=== PATIENT | male | born 1940 | race Caucasian/White ===

== ENCOUNTER 2019-07-01 10:07 | Emergency (ER) | payer OTHER, SELFPAY ==
[2019-07-01 10:30] VITALS: BP 196/102; PULSE 66; RESP 18; TEMP 36.7; O2SAT 100; BMI 31.8
--- NOTE | 2019-07-01 11:08 | ED.GENADULT ---
HPI - General Adult <Chastity Serrano PA-C - Last Filed: 07/01/19 19:08> General Chief complaint: Hypertension Stated complaint: high blood pressure today Time Seen by Provider: 07/01/19 10:14 Source: patient Mode of arrival: Ambulatory Limitations: no limitations History of Present Illness HPI narrative: This 79-year-old gentleman comes to ED due to noticing elevated blood pressure on his home monitoring. He states he always checks his blood pressure twice daily when relaxed. He states it averages about 135/80 at home, however over the last week or so he has noted more elevated diastolic readings as high as the 95-105 range. He states that he has had a bit of a cold that is largely resolved. He states other than that, he is feeling well, doing normal activities, normal p.o. intake. He denies any medication changes, new supplements, caffeine etc. He denies any chest pain or dyspnea. He denies any nausea. He denies any headache or vision change. He states that he came in due to concern over readings on the monitor, not due to feeling ill at all. He has some chronic lower extremity swelling, worse on the left, which is at baseline. He denies any pain in the extremities. He denies any symptoms other than a sore toe recently from gout, and chronic intermittent left shoulder soreness from arthritis on systems review, and has no shoulder pain currently. He states that he has a history of some mild renal insufficiency, notes that he had echocardiogram and stress test done without concerning findings in the last couple of years Related Data Home Medications Medication Instructions Recorded Confirmed albuterol sulfate 90 mcg/actuation 2 puff INHALATION Q4H PRN 04/25/18 07/01/19 breath activated powder inhaler amlodipine 5 mg tablet 5 mg PO DAILY 04/25/18 07/01/19 celecoxib 200 mg capsule 200 mg PO QPM 04/25/18 07/01/19 levothyroxine 75 mcg PO DAILY 07/01/19 07/01/19 Previous Rx's Medication Instructions Recorded losartan 100 mg PO DAILY #30 tab 07/01/19 potassium chloride 10 meq PO DAILY #30 cap 07/01/19 Allergies Allergy/AdvReac Type Severity Reaction Status Date / Time No Known Drug Allergies Allergy Unverified 04/25/18 09:10 Review of Systems <Chastity Serrano PA-C - Last Filed: 07/01/19 19:08> Review of Systems ROS Unobtainable: All systems reviewed & are unremarkable except as noted in HPI and below PFSH <Chastity Serrano PA-C - Last Filed: 07/01/19 19:08> Medical History (Updated 07/01/19 @ 17:35 by Chastity Serrano PA-C) Gout (Chronic) Heart murmur (Chronic) HTN (hypertension) (Chronic) Hypothyroidism (Chronic) TERRA (obstructive sleep apnea) (Chronic) Osteoarthritis involving multiple joints on both sides of body (Chronic) Renal insufficiency (Chronic) Surgical History (Updated 07/01/19 @ 11:43 by Chastity Serrano PA-C) H/O shoulder replacement (Resolved) Hx of cholecystectomy (Resolved) Status post cholecystectomy (Chronic) Status post total hip replacement, bilateral (Resolved) Status post uvulopalatopharyngoplasty (Resolved) Social History Smoking Status: Former smoker Social History Smoking Status: Former smoker Comment: quit tob 50y ago Exam <Chastity Serrano PA-C - Last Filed: 07/01/19 19:08> Narrative Exam Narrative: GENERAL APPEARANCE: Patient sitting comfortably, in no distress. NECK/THYROID: Neck supple, no JVD. LUNGS: Clear to auscultation bilaterally. HEART: Regular rate and rhythm with I/ systolic ejection murmur, normal S1, S2, no S3 or S4. ABDOMEN: Soft, NT, ND, + BS x 4 quadrants EXTREMITIES: No cyanosis mild bilateral symmetric pitting edema. No calf tenderness NEUROLOGIC: Alert and oriented, normal speech, and coordination. Initial Vital Signs Initial Vital Signs: Vital Signs Temperature 98.1 F 07/01/19 10:30 Pulse Rate 66 07/01/19 10:30 Respiratory Rate 18 07/01/19 10:30 Blood Pressure 196/102 H 07/01/19 10:30 Pulse Oximetry 100 07/01/19 10:30 <Tam Park DO - Last Filed: 07/02/19 06:56> Initial Vital Signs Initial Vital Signs: Vital Signs Temperature 98.1 F 07/01/19 10:30 Pulse Rate 66 07/01/19 10:30 Respiratory Rate 18 07/01/19 10:30 Blood Pressure 196/102 H 07/01/19 10:30 Pulse Oximetry 100 07/01/19 10:30 Course <Chastity Serrano PA-C - Last Filed: 07/01/19 19:08> Course Additional Information: We had initially planned to admit patient for potassium replacement and monitoring, however spoke with hospitalist Dr. Melgar who advised since patient is feeling well, no acute EKG changes and can tolerate oral medications, advised outpatient treatment unless patient's potassium is not improving here. K rider 40 mEq given, repeat potassium improved to 3.1, EKG stable. Patient remains feeling well. Will discontinue HCTZ. Given a prescription for Cozaar alone along with 10 mEq potassium and advised that this should be rechecked in the next couple of days to determine whether he needs to continue off of his diuretic. Patient agrees to phone his PCP office 1st thing in the morning regarding this. He agrees to return if any acute changes. I spoke with Dr. Berumen vocational education teacher for patient's PCP who is aware of findings and able to ensure patient gets timely follow up and labwork Orders Ordered: Discontinued Medications Potassium Chloride 40 meq/ (Sodium Chloride) 520 mls @ 130 mls/hr IV NOW ONE Stop: 07/01/19 15:49 Last Infusion: 07/01/19 16:36 Dose: 0 mls/hr Documented by: EVANGELINA Cosigned by: RAINER Admin: 07/01/19 12:23 Dose: 130 mls/hr Documented by: RAINER Cosigned by: BTONEErika Vital Signs Vital signs: Vital Signs - 8 hr 07/01/19 11:13 07/01/19 14:56 07/01/19 17:31 Pulse Rate 69 52 L 57 L Respiratory Rate 20 17 15 Blood Pressure [Right Arm] 168/91 H 140/76 139/81 Pulse Oximetry 99 99 99 <Tam Park DO - Last Filed: 07/02/19 06:56> Orders Ordered: Discontinued Medications Potassium Chloride 40 meq/ (Sodium Chloride) 520 mls @ 130 mls/hr IV NOW ONE Stop: 07/01/19 15:49 Last Infusion: 07/01/19 16:36 Dose: 0 mls/hr Documented by: EVANGELINA Cosigned by: RAINER Admin: 07/01/19 12:23 Dose: 130 mls/hr Documented by: RAINER Cosigned by: INEZ Vital Signs Vital signs: Vital Signs - 8 hr 07/01/19 11:13 07/01/19 14:56 07/01/19 17:31 Pulse Rate 69 52 L 57 L Respiratory Rate 20 17 15 Blood Pressure [Right Arm] 168/91 H 140/76 139/81 Pulse Oximetry 99 99 99 Medical Decision Making <Chastity Serrano PA-C - Last Filed: 07/01/19 19:08> Lab Data Lab results reviewed: Yes I reviewed the patient's lab results. Result diagrams: 07/01/19 11:00 07/01/19 16:58 Labs: Lab Results 07/01/19 07/01/19 07/01/19 Range/Units 11:00 11:00 11:00 WBC 8.9 (4.5-11.0) X10^3/uL RBC 4.88 (4.5-5.9) X10^6/uL Hgb 15.3 (13.5-17.5) g/dL Hct 44.3 (41-53) % MCV 90.8 (80-100) fL MCH 31.4 (26-34) PG MCHC 34.6 (30-36) % RDW 13.3 (11.6-14.8) % Plt Count 133 L (150-400) X10^3/uL Neut % (Auto) 67.4 (50-75) % Lymph % (Auto) 22.7 L (25-40) % [place] % (Auto) 7.5 (3-14) % Eos % (Auto) 2.0 (2-4) % Baso % (Auto) 0.4 (0-2) % Neut # (Auto) 6000 (2349-6560) /uL Lymph # (Auto) 2000 (3573-0668) /uL [place] # (Auto) 700 (0-900) /uL Eos # (Auto) 200 (0-450) /uL Baso # (Auto) 0 (0-100) /uL Sodium 139 (137-145) mmol/L Potassium 2.5 L* (3.4-5.1) mmol/L Chloride 99 (98-107) mmol/L Carbon Dioxide 27 (22-32) mmol/L BUN 21 H (9-20) mg/dL Creatinine 1.20 (0.66-1.25) mg/dL Estimated GFR 58.3 L (>60) mL/min BUN/Creatinine Ratio 17.5 (6-22) Glucose 94 (80-110) mg/dL Calcium 9.8 (8.4-10.2) mg/dL Magnesium 1.7 (1.6-2.3) mg/dL 07/01/19 Range/Units 16:58 WBC (4.5-11.0) X10^3/uL RBC (4.5-5.9) X10^6/uL Hgb (13.5-17.5) g/dL Hct (41-53) % MCV (80-100) fL MCH (26-34) PG MCHC (30-36) % RDW (11.6-14.8) % Plt Count (150-400) X10^3/uL Neut % (Auto) (50-75) % Lymph % (Auto) (25-40) % [place] % (Auto) (3-14) % Eos % (Auto) (2-4) % Baso % (Auto) (0-2) % Neut # (Auto) (6089-1476) /uL Lymph # (Auto) (9344-9324) /uL [place] # (Auto) (0-900) /uL Eos # (Auto) (0-450) /uL Baso # (Auto) (0-100) /uL Sodium (137-145) mmol/L Potassium 3.1 L (3.4-5.1) mmol/L Chloride (98-107) mmol/L Carbon Dioxide (22-32) mmol/L BUN (9-20) mg/dL Creatinine (0.66-1.25) mg/dL Estimated GFR (>60) mL/min BUN/Creatinine Ratio (6-22) Glucose (80-110) mg/dL Calcium (8.4-10.2) mg/dL Magnesium (1.6-2.3) mg/dL Urine Dip Bedside Urine Glucose Negative Bedside Urine Bilirubin - Negative Bedside Urine Ketone - Negative Urine Specific [place] 1.010 Bedside Urine Occult Blood - Negative Bedside Urine pH 6.0 Bedside Urine Protein - Negative Bedside Urine Urobilinogen - Negative Bedside Urine Nitrite - Negative Bedside Urine Leukocytes - Negative Esterase Point of care testing: Urine Dip Bedside Urine Glucose Negative Bedside Urine Bilirubin - Negative Bedside Urine Ketone - Negative Urine Specific [place] 1.010 Bedside Urine Occult Blood - Negative Bedside Urine pH 6.0 Bedside Urine Protein - Negative Bedside Urine Urobilinogen - Negative Bedside Urine Nitrite - Negative Bedside Urine Leukocytes - Negative Esterase ECG Data Attestation: I personally reviewed and interpreted this ECG as follows: (Normal sinus rhythm, rate 75, nonspecific lateral lead changes, Q-waves, unchanged from previous. EKG 2. Sinus bradycardia, rate 52, no acute change ) <Tam Park DO - Last Filed: 07/02/19 06:56> Lab Data Labs: Lab Results 07/01/19 07/01/19 07/01/19 Range/Units 11:00 11:00 11:00 WBC 8.9 (4.5-11.0) X10^3/uL RBC 4.88 (4.5-5.9) X10^6/uL Hgb 15.3 (13.5-17.5) g/dL Hct 44.3 (41-53) % MCV 90.8 (80-100) fL MCH 31.4 (26-34) PG MCHC 34.6 (30-36) % RDW 13.3 (11.6-14.8) % Plt Count 133 L (150-400) X10^3/uL Neut % (Auto) 67.4 (50-75) % Lymph % (Auto) 22.7 L (25-40) % [place] % (Auto) 7.5 (3-14) % Eos % (Auto) 2.0 (2-4) % Baso % (Auto) 0.4 (0-2) % Neut # (Auto) 6000 (9269-7794) /uL Lymph # (Auto) 2000 (2617-0848) /uL [place] # (Auto) 700 (0-900) /uL Eos # (Auto) 200 (0-450) /uL Baso # (Auto) 0 (0-100) /uL Sodium 139 (137-145) mmol/L Potassium 2.5 L* (3.4-5.1) mmol/L Chloride 99 (98-107) mmol/L Carbon Dioxide 27 (22-32) mmol/L BUN 21 H (9-20) mg/dL Creatinine 1.20 (0.66-1.25) mg/dL Estimated GFR 58.3 L (>60) mL/min BUN/Creatinine Ratio 17.5 (6-22) Glucose 94 (80-110) mg/dL Calcium 9.8 (8.4-10.2) mg/dL Magnesium 1.7 (1.6-2.3) mg/dL 07/01/19 Range/Units 16:58 WBC (4.5-11.0) X10^3/uL RBC (4.5-5.9) X10^6/uL Hgb (13.5-17.5) g/dL Hct (41-53) % MCV (80-100) fL MCH (26-34) PG MCHC (30-36) % RDW (11.6-14.8) % Plt Count (150-400) X10^3/uL Neut % (Auto) (50-75) % Lymph % (Auto) (25-40) % [place] % (Auto) (3-14) % Eos % (Auto) (2-4) % Baso % (Auto) (0-2) % Neut # (Auto) (4615-1794) /uL Lymph # (Auto) (0996-9819) /uL [place] # (Auto) (0-900) /uL Eos # (Auto) (0-450) /uL Baso # (Auto) (0-100) /uL Sodium (137-145) mmol/L Potassium 3.1 L (3.4-5.1) mmol/L Chloride (98-107) mmol/L Carbon Dioxide (22-32) mmol/L BUN (9-20) mg/dL Creatinine (0.66-1.25) mg/dL Estimated GFR (>60) mL/min BUN/Creatinine Ratio (6-22) Glucose (80-110) mg/dL Calcium (8.4-10.2) mg/dL Magnesium (1.6-2.3) mg/dL Urine Dip Bedside Urine Glucose Negative Bedside Urine Bilirubin - Negative Bedside Urine Ketone - Negative Urine Specific [place] 1.010 Bedside Urine Occult Blood - Negative Bedside Urine pH 6.0 Bedside Urine Protein - Negative Bedside Urine Urobilinogen - Negative Bedside Urine Nitrite - Negative Bedside Urine Leukocytes - Negative Esterase Point of care testing: Urine Dip Bedside Urine Glucose Negative Bedside Urine Bilirubin - Negative Bedside Urine Ketone - Negative Urine Specific [place] 1.010 Bedside Urine Occult Blood - Negative Bedside Urine pH 6.0 Bedside Urine Protein - Negative Bedside Urine Urobilinogen - Negative Bedside Urine Nitrite - Negative Bedside Urine Leukocytes - Negative Esterase Discharge Plan Departure Patient Disposition: Home Clinical Impression: Hypokalemia Discharge Date/Time: 07/01/19 18:06 Instructions: Potassium Activity Restrictions/Additional Instructions: We noted coincidentally that your potassium was quite low today, however it has improved well with the IV potassium that we gave you. Since you have not had changes in your EKG and you have been feeling well, you can return home this evening. Your potassium may have become low due to being on a diuretic, so I have prescribed losartan alone without your water pill (hydrochlorothiazide). Please start taking that tomorrow along with the prescription potassium. As we talked about, potassium has a very narrow normal range, so you may not need to stay on the prescription potassium long-term after you stop the water pill. Losartan actually helps your body conserve potassium. Please call your primary care provider's office 1st thing in the morning and let them know we have advised you to follow up tomorrow or Friday for repeat potassium and to determine whether to make changes in your blood pressure medicine. If you are feeling poorly in the interim or have new symptoms such as chest pain or palpitations, you should return to the closest emergency department immediately. Prescriptions: New losartan 100 mg tablet 100 mg PO DAILY Qty: 30 RF: 0 potassium chloride 10 mEq capsule, extended release 10 meq PO DAILY Qty: 30 RF: 0 Discontinued losartan-hydrochlorothiazide 100-25 mg tablet 1 tab PO DAILY RF: 0 No Action albuterol sulfate 90 mcg/actuation aerosol powdr breath activated 2 puff INHALATION Q4H PRN (Reason: Shortness Of Breath) RF: 0 amlodipine 5 mg tablet 5 mg PO DAILY RF: 0 celecoxib 200 mg capsule 200 mg PO QPM RF: 0 levothyroxine 75 mcg tablet 75 mcg PO DAILY RF: 0 Referrals: Zhanna Vergara, [Primary Care Provider] -
[2019-07-01 11:13] VITALS: BP 168/91; PULSE 69; RESP 20; O2SAT 99
[2019-07-01 11:31] LABS: Add Manual Diff / Slide Review NO; Basophils Absolute Auto 0 /uL (0-100); Basophils Percent Auto 0.4 % (0-2); Eosinophils Absolute Auto 200 /uL (0-450); Hematocrit 44.3 % (41-53); Hemoglobin 15.3 g/dL (13.5-17.5); Lymphocytes Absolute Auto 2000 /uL (1100-4500); Lymphocytes Percent Auto 22.7 % (25-40); Mean Corpuscular HGB Conc 34.6 % (30-36); Mean Corpuscular Hemoglobin 31.4 PG (26-34); Mean Corpuscular Volume 90.8 fL (80-100); Monocytes Absolute Auto 700 /uL (0-900); Monocytes Percent Auto 7.5 % (3-14); Neutrophils Absolute Auto 6000 /uL (1500-7000); Neutrophils Percent Auto 67.4 % (50-75); Platelet Count 133 X10^3/uL (150-400); Red Blood Cell Count 4.88 X10^6/uL (4.5-5.9); Red Cell Distribution Width 13.3 % (11.6-14.8); White Blood Cell Count 8.9 X10^3/uL (4.5-11.0)
[2019-07-01 11:36] LABS: BUN Creatinine Ratio 17.5 (6-22); Blood Urea Nitrogen 21 mg/dL (9-20); Calcium 9.8 mg/dL (8.4-10.2); Carbon Dioxide 27 mmol/L (22-32); Chloride 99 mmol/L (98-107); Estimated Glomerular Filt Rate 58.3 mL/min (>60); Glucose 94 mg/dL (80-110); HEMOLYSIS < 15 (0-50); Sodium 139 mmol/L (137-145)
[2019-07-01 11:46] LABS: Potassium 2.5 mmol/L (3.4-5.1)
[2019-07-01 12:04] LABS: Magnesium 1.7 mg/dL (1.6-2.3)
[2019-07-01] MEDS: POTASSIUM CHLORIDE 40 MEQ in SODIUM CHLORIDE 0.9% 500 ML 130 ML IV (12:23)
--- NOTE | 2019-07-01 12:43 | PC.NURSE ---
pt c/o increasing high blood pressure. pt denies chest pain. denies sob.
[2019-07-01 14:56] VITALS: BP 140/76; PULSE 52; RESP 17; O2SAT 99
[2019-07-01 17:16] LABS: HEMOLYSIS < 15 (0-50); Potassium 3.1 mmol/L (3.4-5.1)
[2019-07-01 17:31] VITALS: BP 139/81; PULSE 57; RESP 15; O2SAT 99
== END 2019-07-01 18:06 | disposition home or self-care (01) ==
PROVIDERS: Emergency Provider Internal Medicine; PCP Family Medicine
DX: E87.5 Hyperkalemia (principal); R00.1 Bradycardia, unspecified
CPT/HCPCS: 80048; 81003; 83735; 84132; 85025; 93005; 96365; 96366; 99283; 99284; J3480

== ENCOUNTER 2020-03-19 17:02 | Emergency (ER) | payer OTHER, SELFPAY ==
[2020-03-19 17:07] VITALS: BP 201/111; PULSE 90; RESP 18; TEMP 37.7; O2SAT 99
--- NOTE | 2020-03-19 17:11 | DI.RAD.S_ITS ---
PROCEDURE: XR CHEST 1V INDICATIONS: chest pain TECHNIQUE: One view of the chest was acquired. COMPARISON: [facility], CR, XR CHEST 1 VIEW, 01/09/2018, 20:45. FINDINGS: Surgical changes and devices: Status post right shoulder arthroplasty. Lungs and pleura: Stable appearance of bilateral upper lung scarring. Lungs are otherwise clear. No pleural effusions or pneumothorax. Mediastinum: Mediastinal contours appear normal. Heart size is normal. Bones and chest wall: No suspicious bony lesions. Overlying soft tissues appear unremarkable. IMPRESSION: Chest without acute cardiopulmonary abnormalities. Dictated by: Reji Maldonado M.D. on 03/19/2020 at 18:11 Approved by: Reji Maldonado M.D. on 03/19/2020 at 18:12
--- NOTE | 2020-03-19 17:13 | ED_ITS ---
HPI - Chest Pain General Chief Complaint: Chest Pain Stated Complaint: chest pains, intermitten Time Seen by Provider: 03/19/20 17:05 Source: patient Mode of arrival: Ambulatory Limitations: no limitations History of Present Illness HPI narrative: Patient is a 79-year-old male with history of hypertension presenting with left-sided chest pain. He says he has been having discomfort off and on for a a few days now but today it has progressively gotten more frequent today. He feels numbness tingling sensations on left side of his chest it lasts only briefly seconds even however today it was more frequent every 3-4 minutes. He denies any radiation of pain any shortness of breath. He says it happens at rest and with exertion. He currently is not experiencing symptoms. He has never experienced anything like this in the past. He denies any provocation or palliation. MD complaint: chest pain Duration: intermittent Onset: during rest and during exertion Pain location: left chest Severity: mild Related Data Home Medications Medication Instructions Recorded Confirmed albuterol sulfate 90 mcg/actuation 2 puff INHALATION Q4H PRN 04/25/18 07/01/19 breath activated powder inhaler amlodipine 5 mg tablet 5 mg PO DAILY 04/25/18 07/01/19 celecoxib 200 mg capsule 200 mg PO QPM 04/25/18 07/01/19 levothyroxine 75 mcg PO DAILY 07/01/19 07/01/19 Previous Rx's Medication Instructions Recorded losartan 100 mg PO DAILY #30 tab 07/01/19 potassium chloride 10 meq PO DAILY #30 cap 07/01/19 Allergies Allergy/AdvReac Type Severity Reaction Status Date / Time No Known Drug Allergies Allergy Unverified 04/25/18 09:10 Review of Systems Review of Systems Narrative: GENERAL: Denies chills, fatigue, malaise, fever, sweats, travel HEENT: Denies sinus pain, ear pain, sore throat, difficulty swallowing, neck pain RESPIRATORY: Denies dyspnea, cough, wheezing, hemoptysis, sputum. CARDIOVASCULAR: See HPI GASTROINTESTINAL: Denies nausea, vomiting, abdominal pain, diarrhea, constipation, melena. : Denies dysuria, frequency, incontinence, hematuria, urinary retention, flank pain. MUSCULOSKELETAL: Denies weakness, joint pain, or bony pain SKIN: No rash, no erythema, no pruritus NEUROLOGIC: Denies weakness, dizziness, headache, numbness, change in speech, confusion PSYCHIATRIC: No concerning psychosocial issues. 12 point review of systems is negative except for those stated above and HPI Patient History Medical History Gout (Chronic) Heart murmur (Chronic) HTN (hypertension) (Chronic) Hypothyroidism (Chronic) TERRA (obstructive sleep apnea) (Chronic) Osteoarthritis involving multiple joints on both sides of body (Chronic) Renal insufficiency (Chronic) Surgical History H/O shoulder replacement (Resolved) Hx of cholecystectomy (Resolved) Status post cholecystectomy (Chronic) Status post total hip replacement, bilateral (Resolved) Status post uvulopalatopharyngoplasty (Resolved) Social History Smoking Status: Former smoker Smoking Status: Former smoker alcohol intake frequency: 0-2 drinks per day Substance Use Type: does not use Exam Initial Vital Signs Initial Vital Signs: Vital Signs Temperature 99.8 F H 03/19/20 17:07 Pulse Rate 90 03/19/20 17:07 Respiratory Rate 18 03/19/20 17:07 Blood Pressure 201/111 H 03/19/20 17:07 Pulse Oximetry 99 03/19/20 17:07 GENERAL: Alert well-appearing elderly male HEENT: Head atraumatic,EOMI, pupils reactive, face symmetric, moist mucous memb ranes CARDIOVASCULAR: Regular rate and rhythm without murmurs, rubs or gallops. Pain is not reproduced with palpation RESPIRATORY: Breath sounds equal bilaterally, no wheezes rales or rhonchi. ABDOMEN: Soft, nontender. Normoactive bowel sounds all 4 quadrants. No guarding or rebound. EXTREMITIES: Normal range of motion, no clubbing or edema. Neurovascularly intact NEUROLOGICAL: Alert and oriented x4.Normal gait and speech. SKIN: Warm, dry, no laceration, no petechiae, no rashes or lesions. No vesicular lesion. Scores HEART Score Heart Score history: Slightly Suspicious Heart Score EKG: Normal Heart Score Age: > or = 65 years old Heart Score risk factors: 1-2 risk factors Heart Score troponin: < or = to normal limit Heart Score Total: 3 Course Orders Ordered: ED Orders 03/19/20 17:11 XR chest 1V Stat EKG-12 Lead Stat 03/19/20 17:20 Complete Blood Count AUTO DIFF Stat Comprehensive Metabolic Panel Stat Lipase Stat Troponin & CK Cardiac Panel Stat Sodium Chloride (Normal Saline 0.9%) 1,000 mls @ 150 mls/hr IV CONT DANNY Last Admin: 03/19/20 17:25 Dose: 150 mls/hr Documented by: BTONER Discontinued Medications Aspirin (Aspirin Chew) 324 mg PO NOW ONE Stop: 03/19/20 17:12 Last Admin: 03/19/20 17:25 Dose: 324 mg Documented by: BTONER Vital Signs Vital signs: Vital Signs - 8 hr 03/19/20 17:07 03/19/20 17:32 Temperature 99.8 F H Pulse Rate 90 72 Respiratory Rate 18 20 Blood Pressure 201/111 H Blood Pressure [Left Arm] 161/93 H Pulse Oximetry 99 96 MDM - Chest Pain Lab Data Attestation: I reviewed the patient's lab results. Result diagrams: 03/19/20 17:20 03/19/20 17:20 Labs: Lab Results 03/19/20 03/19/20 Range/Units 17:20 17:20 WBC 7.2 (4.5-11.0) X10^3/uL RBC 4.86 (4.5-5.9) X10^6/uL Hgb 15.5 (13.5-17.5) g/dL Hct 44.0 (41-53) % MCV 90.7 (80-100) fL MCH 31.9 (26-34) PG MCHC 35.2 (30-36) % RDW 13.4 (11.6-14.8) % Plt Count 116 L (150-400) X10^3/uL Neut % (Auto) 65.9 (50-75) % Lymph % (Auto) 22.4 L (25-40) % [place] % (Auto) 8.0 (3-14) % Eos % (Auto) 2.9 (2-4) % Baso % (Auto) 0.8 (0-2) % Neut # (Auto) 4800 (9309-3634) /uL Lymph # (Auto) 1600 (2902-0377) /uL [place] # (Auto) 600 (0-900) /uL Eos # (Auto) 200 (0-450) /uL Baso # (Auto) 100 (0-100) /uL Sodium 138 (137-145) mmol/L Potassium 3.3 L (3.4-5.1) mmol/L Chloride 106 (98-107) mmol/L Carbon Dioxide 22 (22-32) mmol/L BUN 23 H (9-20) mg/dL Creatinine 1.27 H (0.66-1.25) mg/dL Estimated GFR 54.6 L (>60) mL/min BUN/Creatinine Ratio 18.1 (6-22) Glucose 96 (80-110) mg/dL Calcium 10.4 H (8.4-10.2) mg/dL Total Bilirubin 0.9 (0.2-1.3) mg/dL AST 28 (17-59) IU/L ALT 17 (<50) IU/L Alkaline Phosphatase 51 (38-126) U/L Total Creatine Kinase 86 (55-170) U/L CK-MB (CK-2) TNP CK-MB (CK-2) Rel Index TNP Troponin I < 0.012 (0.01-0.034) ng/mL Total Protein 7.0 (6.3-8.2) g/dL Albumin 4.5 (3.5-5.0) g/dL Globulin 2.5 (1.7-4.1) g/dL Albumin/Globulin Ratio 1.8 (1.0-2.8) Lipase 124 (23-300) U/L Imaging Data Chest x-ray: Radiologist's Impression: Chest without acute cardiopulmonary abnormalities ECG Data Attestation: I personally reviewed and interpreted this ECG as follows: Prior ECG tracings: available for review Interpretation: Normal sinus rhythm rate 85 p.r. interval 206 QRS [address] elevation depression T-wave inversion noted in lead 3 similar to previous EKG in June Narrative Medical decision making narrative: Patient has been having symptoms off and on for a few days and more frequently today. He describes it as numbness tingling in 1 side of his chest which is not consistent with cardiac. His troponin and EKG and chest x-ray are all reassuring. He has not had any episodes while in the ED. he has no numbness tingling or weakness of extremities this does not seem to be TIA or stroke-like. At this time I recommend outpatient follow-up with stress test and to return to the ED if any symptoms are worse. I discussed all findings with the patient and , Education has been performed regarding treatment plan, diagnosis, warning signs and symptoms and all concerns have been addressed. Verbally agree with and understood all of the above. Discharge Plan Departure Patient Disposition: Home Clinical Impression: Atypical chest pain Instructions: DI for Atypical Chest Pain Activity Restrictions/Additional Instructions: *You have been diagnosed with atypical chest pain *What to do: Recommend stress test as an outpatient, please call your primary care provider tomorrow to schedule *Continue to take medications as directed Aspirin 81 mg once a day *Follow up with your primary care provider in 2-3 days *Return to ER if you should have any worsening chest pain, increase in frequency, shortness of breath, weakness difficulty speaking or any new, worsening or concerning symptoms Prescriptions: No Action albuterol sulfate 90 mcg/actuation aerosol powdr breath activated 2 puff INHALATION Q4H PRN (Reason: Shortness Of Breath) RF: 0 amlodipine 5 mg tablet 5 mg PO DAILY RF: 0 celecoxib 200 mg capsule 200 mg PO QPM RF: 0 levothyroxine 75 mcg tablet 75 mcg PO DAILY RF: 0 losartan 100 mg tablet 100 mg PO DAILY Qty: 30 RF: 0 potassium chloride 10 mEq capsule, extended release 10 meq PO DAILY Qty: 30 RF: 0 Referrals: Zhanna Vergara DO [Primary Care Provider] -
[2020-03-19] MEDS: ASPIRIN 81 MG CHEW TAB 324 MG PO (17:25)
[2020-03-19] MEDS: SODIUM CHLORIDE 0.9% 1,000 ML 150 ML IV (17:25)
[2020-03-19 17:32] VITALS: BP 161/93; PULSE 72; RESP 20; O2SAT 96
[2020-03-19 17:35] LABS: Add Manual Diff / Slide Review NO; Basophils Absolute Auto 100 /uL (0-100); Basophils Percent Auto 0.8 % (0-2); Eosinophils Absolute Auto 200 /uL (0-450); Eosinophils Percent Auto 2.9 % (2-4); Hemoglobin 15.5 g/dL (13.5-17.5); Lymphocytes Absolute Auto 1600 /uL (1100-4500); Lymphocytes Percent Auto 22.4 % (25-40); Mean Corpuscular HGB Conc 35.2 % (30-36); Mean Corpuscular Hemoglobin 31.9 PG (26-34); Mean Corpuscular Volume 90.7 fL (80-100); Monocytes Absolute Auto 600 /uL (0-900); Neutrophils Absolute Auto 4800 /uL (1500-7000); Neutrophils Percent Auto 65.9 % (50-75); Platelet Count 116 X10^3/uL (150-400); Red Blood Cell Count 4.86 X10^6/uL (4.5-5.9); Red Cell Distribution Width 13.4 % (11.6-14.8); White Blood Cell Count 7.2 X10^3/uL (4.5-11.0)
[2020-03-19 17:47] LABS: Alanine Aminotransferase 17 IU/L (<50); Albumin 4.5 g/dL (3.5-5.0); Albumin Globulin Ratio 1.8 (1.0-2.8); Alkaline Phosphatase 51 U/L (38-126); Aspartate Aminotransferase 28 IU/L (17-59); BUN Creatinine Ratio 18.1 (6-22); Bilirubin Total 0.9 mg/dL (0.2-1.3); Blood Urea Nitrogen 23 mg/dL (9-20); Calcium 10.4 mg/dL (8.4-10.2); Carbon Dioxide 22 mmol/L (22-32); Chloride 106 mmol/L (98-107); Creatine Kinase 86 U/L (55-170); Estimated Glomerular Filt Rate 54.6 mL/min (>60); Globulin 2.5 g/dL (1.7-4.1); Glucose 96 mg/dL (80-110); HEMOLYSIS 23 (0-50); Lipase 124 U/L (23-300); Potassium 3.3 mmol/L (3.4-5.1); Sodium 138 mmol/L (137-145)
[2020-03-19 17:59] LABS: Troponin I < 0.012 ng/mL (0.01-0.034)
[2020-03-19 18:00] VITALS: BP 177/98; PULSE 56; RESP 16; O2SAT 98
== END 2020-03-19 18:32 | disposition home or self-care (01) ==
PROVIDERS: Emergency Provider Emergency Medicine; PCP Family Medicine
DX: R07.89 Other chest pain (principal); I10 Essential (primary) hypertension
CPT/HCPCS: 36415; 71045; 80053; 82550; 83690; 84484; 85025; 93005; 96360; 99284

== ENCOUNTER 2022-10-17 00:25 | Emergency (ER) | payer OTHER, SELFPAY ==
[2022-10-17 00:32] VITALS: BP 170/85; PULSE 92; RESP 15; TEMP 36.3; O2SAT 99; BMI 31.8
--- NOTE | 2022-10-17 01:25 | ED.LOWEXIN ---
HPI - Extremity Injury (Lower) General Chief Complaint: Extremity Injury, Lower Stated Complaint: CUT LEFT FOOT TOE Time Seen by Provider: 10/17/22 01:11 Source: patient and family Mode of arrival: Ambulatory History of Present Illness HPI Narrative: Patient is a 82-year-old male history of hypertension presenting today with left 4th toe laceration. He was up cutting his toenails because his toenail kept getting caught in the bed sheets but he actually clipped his toe and when stop bleeding. Now after cleaning of the wound the bleeding is easily stopped. He denies taking aspirin or Plavix does appear that he takes Celebrex. No other blood thinners Related Data Home Medications Medication Instructions Recorded Confirmed albuterol sulfate 90 mcg/actuation 2 puff inhalation Q4H PRN 04/25/18 07/01/19 breath activated powder inhaler Shortness Of Breath amlodipine 5 mg tablet 5 mg PO DAILY 04/25/18 07/01/19 celecoxib 200 mg capsule 200 mg PO QPM 04/25/18 07/01/19 levothyroxine 75 mcg tablet 75 mcg PO DAILY 07/01/19 07/01/19 Previous Rx's Medication Instructions Recorded losartan 100 mg tablet 100 mg PO DAILY blood #30 tabs 07/01/19 potassium chloride 10 mEq 10 meq PO DAILY #30 caps 07/01/19 capsule,extended release Allergies Allergy/AdvReac Type Severity Reaction Status Date / Time No Known Drug Allergies Allergy Unverified 04/25/18 09:10 Review of Systems Review of Systems ROS Unobtainable: All systems reviewed & are unremarkable except as noted in HPI and below Patient History Medical History Gout Heart murmur HTN (hypertension) Hypothyroidism TERRA (obstructive sleep apnea) Osteoarthritis involving multiple joints on both sides of body Renal insufficiency Surgical History H/O shoulder replacement Hx of cholecystectomy Status post cholecystectomy Status post total hip replacement, bilateral Status post uvulopalatopharyngoplasty Social History Smoking Status: Former smoker Smoking Status: Former smoker alcohol intake frequency: 0-2 drinks per day Alcohol type: wine Substance Use Type: does not use Exam Initial Vital Signs Initial Vital Signs: Vital Signs Temperature 97.4 F L 10/17/22 00:32 Pulse Rate 92 H 10/17/22 00:32 Respiratory Rate 15 10/17/22 00:32 Blood Pressure 170/85 H 10/17/22 00:32 Pulse Oximetry 99 10/17/22 00:32 Oxygen Delivery Method 10/17/22 00:32 GENERAL: Alert well-appearing 82-year-old male CARDIOVASCULAR: peripheral pulses in tact, cap refill <2 sec RESPIRATORY: No respiratory distress, speaks in full sentences without difficulty EXTREMITIES: Normal range of motion, no clubbing or edema. Neurovascularly intact NEUROLOGICAL: Cranial nerves II through XII grossly intact. Normal gait and speech. SKIN: 4th toe injury at the distal tip bleeding controlled no significant laceration abrasion very small Course Vital Signs Vital signs: Vital Signs - 8 hr 10/17/22 00:32 Temperature 97.4 F L Pulse Rate 92 H Respiratory Rate 15 Blood Pressure 170/85 H Pulse Oximetry 99 Oxygen Delivery Method Room Air MDM - Extremity Injury (Lower) MDM Narrative Medical decision making narrative: Patient is a 82-year-old well-appearing male with a very minor superficial cut to his left 4th toe. He is not on antiplatelet or anticoagulation medication. It with bleeding was easily controlled with pressure and cleaned. Band-Aid was applied by nursing staff. Discussion with and patient about how to control bleeding at home. Discharge Plan Departure Patient Disposition: Home Clinical Impression: Laceration of lower extremity Instructions: Skin Wound Activity Restrictions/Additional Instructions: *You have been diagnosed with 4th toe laceration *What to do: Keep Band-Aid on. If it starts bleeding again please apply direct pressure for 30-60 minutes you may also try ice. *Continue to take medications as directed Antibiotic ointment 1-2 times daily to help prevent infection *Follow up with your primary care provider in 2-3 days or call [phone] *Return to ER if you should have persistent bleeding despite above therapies redness swelling or drainage [or] any new, worsening or concerning symptoms Prescriptions: No Action albuterol sulfate 90 mcg/actuation aerosol powdr breath activated 2 puff INHALATION Q4H PRN (Reason: Shortness Of Breath) amlodipine 5 mg tablet 5 mg PO DAILY celecoxib 200 mg capsule 200 mg PO QPM levothyroxine 75 mcg tablet 75 mcg PO DAILY losartan 100 mg tablet 100 mg PO DAILY Qty: 30 0RF potassium chloride 10 mEq capsule, extended release 10 meq PO DAILY Qty: 30 0RF Referrals: Zhanna Vallejo DO [Primary Care Provider] - Stand Alone Forms: Patient Portal/API
[2022-10-17 01:29] VITALS: BP 145/78; PULSE 71; RESP 18; O2SAT 97
== END 2022-10-17 01:30 | disposition home or self-care (01) ==
PROVIDERS: Emergency Provider Emergency Medicine; PCP Family Medicine
DX: S91.115A Laceration without foreign body of left lesser toe(s) without damage to nail, initial encounter (principal); W26.8XXA Contact with other sharp object(s), not elsewhere classified, initial encounter
CPT/HCPCS: 99281

== ENCOUNTER → 2023-07-01 07:31 | Outpatient (CLI) | payer OTHER, SELFPAY ==
--- NOTE | 2023-07-01 07:33 | DI.RAD.S_ITS ---
PROCEDURE: XR RIBS RT MIN 3V W CXR 1V INDICATIONS: right posterior mid-thoracic back/rib pain TECHNIQUE: 4 views of the right ribs were acquired, along with a single view chest. COMPARISON: [facility], CT, CT CHEST WITHOUT CONTRAST, 02/23/2023, 14:55. FINDINGS: Surgical changes and devices: Partially seen right shoulder arthroplasty Bones and chest wall: No displaced fracture or dislocation. Degenerative changes are seen. Lungs and pleura: Low lung volumes. Opacity at the bases may represent atelectasis. A right apical opacity also again seen. Mediastinum: Normal heart size. IMPRESSION: No displaced fracture. If there is high concern for occult injury, consider repeat radiography or cross-sectional imaging. Lung opacities again seen, better assessed on recent CT chest. Dictated by: Jorge Wolfe M.D. on 07/01/2023 at 8:20 Approved by: Jorge Wolfe M.D. on 07/01/2023 at 8:22
== END ==
PROVIDERS: PCP Family Medicine; Referring Provider Physician Assistant; Visit Provider Physician Assistant
DX: R07.81 Pleurodynia (principal)
CPT/HCPCS: 71101